=== PATIENT | female | born 1980 | race African-American/Black ===

== ENCOUNTER 2023-10-05 10:40 | Emergency (ER) | payer MEDICAID ==
[~2023-10-05] VITALS: Ht 165.1 cm; Wt 65.0 kg
[2023-10-05 10:52] VITALS: O2SAT 100
[2023-10-05 11:17] LABS: BASOPHILS % 0.9 % (0.0-2.0); DIFFERENTIAL COMMENT 0; EOSINOPHILS % 0.4 % (0.0-5.0); HEMATOCRIT. 31.3 % (36.0-48.0); HEMOGLOBIN. 9.7 g/dL (12.0-16.0); LYMPHOCYTES % 24.2 % (20.0-50.0); MEAN CORPUSCULAR HEMOGLOBIN 22.5 pg (28.0-32.0); MEAN CORPUSCULAR HGB CONC 30.9 g/dL (31.0-37.0); MEAN PLATELET VOLUME 7.4 fl (7.4-10.4); MONOCYTES % 10.8 % (2.0-8.0); NEUTROPHILS % 63.7 % (40.0-76.0); PLATELET 486 x1000/uL (130-400); RED BLOOD CELL COUNT 4.28 mill/uL (4.2-5.4); RED CELL DISTRIBUTION WIDTH 20.5 % (11.6-14.6); WHITE BLOOD COUNT 5.8 x1000/uL (4.5-11.0)
[2023-10-05 11:43] LABS: CHLORIDE 108 mEq/L (98-107); SODIUM 136 mEq/L (136-145)
[2023-10-05 11:44] LABS: CARBON DIOXIDE 24 mEq/L (21-32)
[2023-10-05 11:49] LABS: CREATININE 0.8 mg/dL (0.6-1.0); GLUCOSE 89 mg/dL (70-105); UREA NITROGEN BLOOD 6 mg/dL (9-23)
[2023-10-05 11:51] LABS: ALANINE AMINOTRANSFERASE < 7 IU/L (10-49); ALBUMIN 4.5 g/dL (3.2-4.8); ASPARTATE AMINOTRANSFERASE 24 IU/L (<34); BILIRUBIN DIRECT 0.2 mg/dL (<=3.0); BILIRUBIN TOTAL 0.8 mg/dL (0.1-1.0); PROTEIN TOTAL 7.1 g/dL (6.0-8.3)
[2023-10-05 12:13] LABS: CALCIUM 9.8 mg/dL (8.7-10.4)
[2023-10-05] MEDS: FAMOTIDINE 20MG TABLET PO ONE (13:42)
[2023-10-05] MEDS: MAGNESIUM/ALUMINUM HYDROXIDE/SIMETHICONE 30ML UDC PO STA (13:43)
[2023-10-05 14:18] LABS: HCG SCREEN NEGATIVE
[2023-10-05 14:18] LABS: CLARITY URINE CLOUDY (CLEAR); COLOR URINE YELLOW (YELLOW); GLUCOSE URINE NEGATIVE (NEGATIVE); KETONES URINE NEGATIVE (NEGATIVE); LEUKOCYTE ESTERASE URINE 1+ (NEGATIVE); NITRITE URINE NEGATIVE (NEGATIVE); OCCULT BLOOD URINE 3+ (NEGATIVE); PH URINE 5.5 (4.5-8.0); PROTEIN URINE 1+ (NEGATIVE); SPECIFIC GRAVITY URINE 1.023 (1.005-1.030)
[2023-10-05 14:48] LABS: RBC URINE 25-50 /hpf (0-2); SQUAMOUS EPITHELIAL CELL URINE 3+ /lpf (RARE/1+)
[2023-10-05 14:49] LABS: BACTERIA URINE TRACE; WBC URINE 0-2 /hpf (0-2)
[2023-10-05] MEDS: VISCOUS LIDOCAINE 2% 15 ML UDC PO NR (15:03)
[2023-10-05] MEDS ORDERED: FAMO-135 MT (15:09)
[2023-10-05] MEDS ORDERED: MAG-55 MT (15:09)
[2023-10-05 15:34] VITALS: BP 116/82; PULSE 88; RESP 16; TEMP 98.4
== END 2023-10-05 15:35 | disposition home or self-care (01) ==
LOC: ER 10:40
DX: R10.9 Unspecified abdominal pain (principal); R11.2 Nausea with vomiting, unspecified; J45.909 Unspecified asthma, uncomplicated
CPT/HCPCS: 36415; 80048; 80076; 81003; 81025; 84703; 85025; 93005; 99284